=== PATIENT | female | born 1965 ===

== ENCOUNTER 2018-09-25 11:30 | Inpatient (IN) | payer OTHER ==
[2018-09-25] MEDS ORDERED: PROBIOTIC1 EAC3 (12:41)
[2018-09-25] MEDS ORDERED: ZETIA10 MG (12:41)
[2018-09-25] MEDS ORDERED: [UNRECOGNIZED DRUG - OTHER] (12:41)
[2018-09-25] MEDS ORDERED: PANADOL EXTRA500 MG (12:41)
[2018-10-03] MEDS ORDERED: GABAPENTIN800 MG PO (10:15)
[2018-10-03] MEDS ORDERED: DOCUSATE SODIU100 MG PO (10:15)
[2018-10-03] MEDS ORDERED: CIPROFLOXACIN750 MG PO (10:16)
[2018-10-03] MEDS ORDERED: CLONAZEPAM1 MG PO (10:17)
[2018-10-03] MEDS ORDERED: ACETAMINOPHEN-1 EAC2 PO (10:17)
== END 2018-10-03 21:52 | DRG 455 ==
LOC: O/R 10-02 05:20 → SURG 10-02 11:30 → SURH 10-02 12:16 → SURG 10-02 13:30 → SURH 10-03 21:52
PROVIDERS: Orthopaedic Surgery Orthopaedic Surgery of the Spine
PROC: 0SG0071 Fusion of Lumbar Vertebral Joint with Autologous Tissue Substitute, Posterior Approach, Posterior Column, Open Approach (ICD-10-PCS; 2018-10-02)
PROC: 0SG00AJ Fusion of Lumbar Vertebral Joint with Interbody Fusion Device, Posterior Approach, Anterior Column, Open Approach (ICD-10-PCS; 2018-10-02)
PROC: 0ST20ZZ Resection of Lumbar Vertebral Disc, Open Approach (ICD-10-PCS; 2018-10-02)
PROC: 07DS3ZZ Extraction of Vertebral Bone Marrow, Percutaneous Approach (ICD-10-PCS; 2018-10-02)
PROC: 0SG00A0 Fusion of Lumbar Vertebral Joint with Interbody Fusion Device, Anterior Approach, Anterior Column, Open Approach (ICD-10-PCS; principal; 2018-10-02 13:30)
DX: M51.36 Other intervertebral disc degeneration, lumbar region (principal); M47.26 Other spondylosis with radiculopathy, lumbar region; M48.061 Spinal stenosis, lumbar region without neurogenic claudication